=== PATIENT | female | born 1985 | race Caucasian/White ===

== ENCOUNTER 2021-07-11 21:57 | Emergency (ER) | payer OTHER ==
[~2021-07-11] VITALS: Ht 157.5 cm; Wt 81.0 kg
[~2021-07-11 21:57] MED LIST: FIORICE1 PO; NO; ZOMIG ZMT5 MG PO
[2021-07-11 22:41] LABS: HEMOGLOBIN 12.1 g/dl (12.0-16.0); IMMATURE GRANULOCYTES 0.2 % (0.0-5.0); MEAN CELL VOLUME 87.2 fL CALC (80.0-100.0); MEAN CORPUSCULAR HGB 27.6 pG CALC (26.0-32.0); MEAN CORPUSCULAR HGB CONC 31.6 g/dL CAL (32.0-36.0); NEUT# 6.31 thou/uL (2.00-7.15); RED BLOOD COUNT 4.39 mill/uL (4.20-5.60); RED CELL DISTRI WIDTH 14.4 % (11.5-15.5)
[2021-07-11 22:42] LABS: HEMATOCRIT 38.3 % (37.0-47.0)
[2021-07-11 22:58] LABS: BILIRUBIN, TOTAL 0.3 mg/dL (0.0-1.4); BUN 8 mg/dL (7-17); BUN/CREATININE RATIO 11 (12-20 (CALC)); CHLORIDE 106 mmol/l (95-108); CREATININE 0.7 mg/dL (0.5-1.0); GFR > 60 ML/MIN (>=60 (CALC)); GFR FOR AFR.AMER. > 60 ML/MIN (>=60 (CALC)); POTASSIUM 4.3 mmol/l (3.5-5.1); SGOT/AST 22 u/l (14-36)
[2021-07-11 23:00] LABS: ALKALINE PHOSPHATASE 94 u/l (38-126); ANION GAP 12 (6-22 (CALC)); CARBON DIOXIDE 27 mmol/l (22-30); SODIUM 141 mmol/l (137-146)
[2021-07-11 23:23] LABS: AMYLASE 67 u/l (30-110); LIPASE 83 u/l (23-300)
[2021-07-12] MEDS ORDERED: PHENERGAN25 MG RE (00:12)
[2021-07-12 00:21] VITALS: BP 110/62
== END 2021-07-12 00:25 | disposition home or self-care (01) | DRG 392 ==
LOC: ED 21:57
PROVIDERS: Family Medicine
DX: K52.9 Noninfective gastroenteritis and colitis, unspecified (principal); F32.A Depression, unspecified; Z20.822 Contact with and (suspected) exposure to COVID-19